=== PATIENT | female | born 1975 | race Caucasian/White ===

== ENCOUNTER 2022-08-21 14:51 | Outpatient (CLI) | payer BC, SELFPAY ==
[2022-08-21 11:33] LABS: Chloride* 108 mmol/L (96-114); Potassium* 4.8 mmol/L (3.6-5.1); Sodium* 139 mmol/L (135-149)
[2022-08-21 11:35] LABS: Cholesterol* 192 mg/dL (90-199)
[2022-08-21 11:36] LABS: Alanine Aminotransferase* 19 U/L (4-35); Alkaline Phosphatase* 66 U/L (40-150); Aspartate Amino Transferase* 23 U/L (12-35); Bilirubin Total* 0.7 mg/dL (0.1-1.5); Blood Urea Nitrogen* 7 mg/dL (5-24); Carbon Dioxide* 26 mmol/L (20-32); Creatinine* 0.7 mg/dL (0.5-1.5); Estimated Glomerular Filt Rate 109 ml/min; Glucose* 95 mg/dL (60-115); Total Protein* 6.4 g/dL (6.0-8.3); Triglycerides* 156 mg/dL (40-149)
[2022-08-21 11:37] LABS: Calcium* 9.2 mg/dL (8.4-10.6); HDL Cholesterol* 51 mg/dL (>=50); LDL Cholesterol Calculated 110 mg/dL (<100)
[2022-08-21 11:52] LABS: Vitamin D 25 Hydroxy* 62 ng/mL (30-80)
[2022-08-21 12:10] LABS: Ferritin* 5.6 ng/mL (6.24-137.0)
== END 2022-08-21 14:52 | disposition home or self-care (01) ==
PROVIDERS: PCP Family Medicine; Visit Provider Family Medicine
DX: E03.9 Hypothyroidism, unspecified (principal); E61.1 Iron deficiency; E55.9 Vitamin D deficiency, unspecified; E66.01 Morbid (severe) obesity due to excess calories; Z13.6 Encounter for screening for cardiovascular disorders
CPT/HCPCS: 80053; 80061; 82306; 82728; 84443